=== PATIENT | female | born 1995 | race Caucasian/White ===

== ENCOUNTER 2020-11-06 18:47 | Outpatient (CLI) | payer OTHER ==
[2020-11-06] MEDS ORDERED: PRENATAL TABLE1 EAC1 PO (19:23)
== END 2020-11-07 09:22 | disposition home or self-care (01) ==
LOC: OBS/DEL 18:47
PROVIDERS: ATTEND Specialist
DX: O46.8X2 Other antepartum hemorrhage, second trimester (principal); Z3A.22 22 weeks gestation of pregnancy

== ENCOUNTER 2021-02-26 15:30 | Inpatient (IN) | payer OTHER ==
[~2021-02-26] VITALS: Ht 180.3 cm; Wt 3.6 kg
[~2021-02-26 15:30] MED LIST: PRENATAL TABLE1 EAC1 PO
== END 2021-03-10 12:15 | disposition home or self-care (01) | DRG 788 ==
LOC: LDR 03-07 00:42 → OB/GYN 03-07 00:42 → LDR 03-13 15:30
PROVIDERS: ADMIT Specialist; ATTEND Specialist
PROC: 4A1HXFZ Monitoring of Products of Conception, Cardiac Rhythm, External Approach (ICD-10-PCS; 2021-03-07)
PROC: 10D00Z1 Extraction of Products of Conception, Low, Open Approach (ICD-10-PCS; principal; 2021-03-07 09:00)
DX: O62.0 Primary inadequate contractions (principal); O64.0XX0 Obstructed labor due to incomplete rotation of fetal head, not applicable or unspecified; O42.02 Full-term premature rupture of membranes, onset of labor within 24 hours of rupture; O99.824 Streptococcus B carrier state complicating childbirth; Z3A.39 39 weeks gestation of pregnancy; Z37.0 Single live birth